=== PATIENT | female | born 1995 | race Caucasian/White ===

== ENCOUNTER 2019-10-12 14:03 | Outpatient (CLI) | payer OTHER ==
[2019-10-12] MEDS ORDERED: NO MEDS PER PT (14:55)
[2019-10-12 15:12] LABS: MICROSCOPIC AUTO
[2019-10-12 15:14] LABS: CULTURE INDICATED? YES
[2019-10-12 15:16] LABS: BASOPHILS # (AUTO) 0.03 x10^3/uL (0-0.1); BASOPHILS % (AUTO) 1 % (0-1); EOSINOPHILS # (AUTO) 0.08 x10^3/uL (0-0.4); EOSINOPHILS % (AUTO) 1 % (1-7); LYMPHOCYTES # (AUTO) 1.99 x10^3/uL (1-3.4); LYMPHOCYTES % (AUTO) 33 % (22-44); MD NO; MEAN CORPUSCULAR HEMOGLOBIN 32.2 pg (27.0-34.8); MEAN CORPUSCULAR HGB CONC 33.9 g/dL (32.4-35.8); MEAN CORPUSCULAR VOLUME 95.1 fL (80-100); MONOCYTES # (AUTO) 0.38 x10^3/uL (0.2-0.8); MONOCYTES % (AUTO) 6 % (2-9); NEUTROPHILS # (AUTO) 3.56 x10^3/uL (1.8-6.8); NEUTROPHILS % (AUTO) 59 % (42-75); PLATELET COUNT 214 x10^3/uL (130-400); RED BLOOD COUNT 4.61 x10^6/uL (3.82-5.3)
== END 2019-10-12 23:59 | disposition home or self-care (01) ==
LOC: STAR 14:03
PROVIDERS: ATTEND Student in an Organized Health Care Education/Training Program
DX: Z01.818 Encounter for other preprocedural examination (principal); N83.209 Unspecified ovarian cyst, unspecified side; R10.2 Pelvic and perineal pain
CPT/HCPCS: 36415; 81001; 84702; 85025; 87077; 87086; 87186

== ENCOUNTER 2019-10-19 11:07 | Day surgery (SDC) | payer OTHER ==
[~2019-10-19] VITALS: Ht 154.9 cm; Wt 52.8 kg
[~2019-10-19 11:07] MED LIST: NO MEDS PER PT
[2019-10-19 11:39] VITALS: BP 103/66
[2019-10-19] MEDS ORDERED: LACTATED RINGERS 1,000 ML IV SCH (11:44)
[2019-10-19] MEDS ORDERED: GABAPENTIN 300 MG CAPSULE PO ONE (12:00)
[2019-10-19] MEDS ORDERED: DIAZEPAM 5 MG TABLET PO ONE (12:00)
[2019-10-19] MEDS ORDERED: SCOPOLAMINE PATCH, 1.5MG PATCH.TD72 TD ONE (12:00)
[2019-10-19] MEDS ORDERED: ACETAMINOPHEN 500 MG TABLET PO ONE (12:00)
[2019-10-19 12:41] LABS: HCG UR SG 1.024 (1.003-1.030); MICROSCOPIC INDICATED
[2019-10-19] MEDS ORDERED: BUPIVACAINE/PF-EPI 0.25% 1:200K ONE (13:15)
[2019-10-19 13:20] LABS: CULTURE INDICATED? NO
[2019-10-19] MEDS ORDERED: FENTANYL PF 250 MCG/5ML ONE (13:34)
[2019-10-19] MEDS ORDERED: MIDAZOLAM 1 MG/ML, 2ML ONE (13:34)
[2019-10-19] MEDS ORDERED: DEXAMETHASONE 4 MG/ML, 1ML ONE (13:48)
[2019-10-19] MEDS ORDERED: LABETALOL 5MG/ML, 20ML IV PRN (14:00)
[2019-10-19] MEDS ORDERED: PROMETHAZINE 12.5 MG SUPP PR PRN (14:00)
[2019-10-19] MEDS ORDERED: ONDANSETRON ODT 8 MG PO PRN (14:00)
[2019-10-19] MEDS ORDERED: PROMETHAZINE 25 MG/ML, 1ML IV PRN (14:00)
[2019-10-19] MEDS ORDERED: hydrALAzine 20 MG/ML, 1ML IV PRN (14:00)
[2019-10-19] MEDS ORDERED: OXYcodone 5 MG/5 ML ORAL.SOL UDC PO PRN (14:00)
[2019-10-19] MEDS ORDERED: HYDROmorphone 2 MG/ML, 1ML IVPush PRN (14:00)
[2019-10-19] MEDS ORDERED: FENTANYL PF 100 MCG/2ML IV PRN (14:00)
[2019-10-19] MEDS ORDERED: DIAZEPAM 5 MG/ML, 2ML IVPush PRN (14:00)
[2019-10-19] MEDS ORDERED: ALBUTEROL SULFATE 2.5 MG/3 ML NPPB PRN (14:00)
[2019-10-19] MEDS ORDERED: MIDAZOLAM 1 MG/ML, 2ML IV PRN (14:00)
[2019-10-19] MEDS ORDERED: ONDANSETRON 2MG/ML, 2ML IV PRN (14:00)
[2019-10-19] MEDS ORDERED: EPHEDRINE 50 MG/ML, 1ML IVPush PRN (14:00)
[2019-10-19] MEDS ORDERED: HALOPERIDOL 5 MG/ML IV PRN (14:00)
[2019-10-19] MEDS ORDERED: MEPERIDINE/PF 25MG/ML,1ML IVPush PRN (14:00)
[2019-10-19] MEDS ORDERED: ONDANSETRON 2MG/ML, 2ML ONE (14:14)
[2019-10-19] MEDS ORDERED: ROCURONIUM 10MG/ML,5ML ONE (14:14)
[2019-10-19] MEDS ORDERED: SUCCINYLCHOLINE 20 MG/ML, 10ML ONE (14:14)
[2019-10-19] MEDS ORDERED: PROPOFOL 10 MG/ML, 20ML ONE (14:14)
[2019-10-19] MEDS ORDERED: SUGAMMADEX 200 MG/2 ML IVPush ONE (14:14)
[2019-10-19] MEDS ORDERED: FENTANYL PF 100 MCG/2ML ONE (14:47)
[2019-10-19] MEDS ORDERED: OXYcodone 5 MG/5 ML ORAL.SOL UDC ONE (14:47)
[2019-10-19] MEDS ORDERED: KETOROLAC 30 MG/1 ML ONE (16:21)
[2019-10-19] MEDS ORDERED: KETOROLAC 30 MG/1 ML IVPush PRN (16:30)
== END 2019-10-19 16:45 | disposition home or self-care (01) ==
LOC: OUT 11:07
PROVIDERS: ATTEND Student in an Organized Health Care Education/Training Program
DX: D27.0 Benign neoplasm of right ovary (principal); N73.6 Female pelvic peritoneal adhesions (postinfective); R10.2 Pelvic and perineal pain; F17.210 Nicotine dependence, cigarettes, uncomplicated; Z98.890 Other specified postprocedural states
CPT/HCPCS: 36415; 58661; 58662; 81001; 81025; 86850; 86900; 88302; J0330; J1100; J1885; J2250; J2405; J2704; J3010; J7120